=== PATIENT | female | born 1955 | race Caucasian/White ===

== ENCOUNTER 2017-06-25 10:03 | Outpatient (CLI) | payer OTHER ==
--- NOTE | 2017-06-28 16:20 | Mammography Report ---
DIGITAL SCREENING MAMMOGRAM: 06/25/2017 CLINICAL INDICATION: A 61-year-old, for screening. COMPARISON: 08/2014, 05/2013, 07/2011, 07/2009, 07/2008, 07/2007. TECHNIQUE: Routine CC and MLO projections were obtained of the breasts. FINDINGS: The breasts demonstrate fatty replacement bilaterally. Coarse and punctate, typically anuj gn calcifications are present. No suspicious masses, clustered microcalcifications, or regions of arc hitectural distortion are identified. IMPRESSION: BENIGN FINDINGS. RECOMMENDATION: ROUTINE ANNUAL SCREENING UNLESS OTHERWISE CLINICALLY INDICATED. BIRADS CATEGORY 2-BENIGN FINDINGS. STANDARD QUALIFYING STATEMENTS 1. This examination was reviewed with the aid of Computer-Aided Detection (CAD). 2. A negative or benign imaging report should not delay biopsy if clinically suspicious findings are present. Consider surgical consultation if warranted. More than 5% of cancers are not identified by i maging. 3. Dense breasts may obscure an underlying neoplasm. JOB #: [id number] EXT JOB #:[id number]
== END 2017-06-25 10:04 | disposition home or self-care (01) ==
LOC: DI 10:03
PROVIDERS: ATTEND Physician Assistant
DX: Z12.31 Encounter for screening mammogram for malignant neoplasm of breast (principal)
CPT/HCPCS: 77067

== ENCOUNTER 2017-08-13 09:59 | Outpatient (CLI) | payer OTHER ==
[2017-08-13] MEDS ORDERED: IOPAMIDOL-300 100 ML VIAL ONE (10:10)
[2017-08-13] MEDS ORDERED: IOPAMIDOL-300 50 ML VIAL ONE (10:10)
[2017-08-13 10:23] LABS: CREATININE 0.5 mg/dL (0.4-1.0)
[2017-08-13] MEDS ORDERED: IOPAMIDOL-300 50 ML VIAL PO ONE (10:50)
[2017-08-13] MEDS ORDERED: IOPAMIDOL-300 100 ML VIAL IVP ONE (10:50)
--- NOTE | 2017-08-13 13:20 | CT Report ---
EXAM: CT ABDOMEN AND PELVIS EXAM DATE: 08/13/2017 11:28 AM. CLINICAL HISTORY: Elevated liver function test. COMPARISONS: None. TECHNIQUE: Routine helical CT imaging was performed through the abdomen and pelvis. IV contrast: 100 cc Isovue-300. Enteric contrast: Yes. Reconstructions: Coronal and sagittal. In accordance with CT protocol optimization, one or more of the following dose reduction techniques w ere utilized for this exam: automated exposure control, adjustment of mA and/or KV based on patient s ize, or use of iterative reconstructive technique. FINDINGS: Lung Bases: Essentially clear. Liver: Normal size and contour. Mildly diffusely hypodense, consistent with steatosis. No focal lesio n. Orally patent vasculature. Gallbladder/Bile Ducts: No ductal dilatation postcholecystectomy. Spleen: No splenomegaly or focal lesion. Pancreas: A tiny hypodensity (3-4 mm) in the pancreatic head is likely cystic. Otherwise unremarkable . No ductal dilatation. Adrenal Glands: No nodule. Kidneys: No hydronephrosis or stones. Tiny mid pole right renal cyst. Otherwise unremarkable. Peritoneal Cavity/Bowel: No intestinal dilatation. An ascending vermiform retrocecal appendix measure s up to 10 mm in diameter and is associated with mild periappendiceal fat stranding and mild thickeni ng of the adjacent peritoneal lining. No free fluid, abscess, or free air. Few small right lower quad rant lymph nodes measure up to 0.6 cm short axis. No leighann adenopathy by size criteria. Retroperitoneum: No mass or lymphadenopathy. Pelvic Organs: The bladder and visualized pelvic organs are within normal limits. Vasculature: Calcified plaques of proximal common iliac arteries. No abdominal aortic aneurysm. Bones: No significant abnormality. IMPRESSION: 1. Consistent with mild hepatic steatosis. No focal liver lesion. 2. No biliary ductal dilatation postcholecystectomy. 3. Mildly dilated ascending vermiform retrocecal appendix with periappendiceal fat stranding concerni ng for acute appendicitis. No abscess. Close clinical correlation warranted. [facility] The call report notification system was initiated by Dr. Delroy Marcus at 12:38 hrs on 08/13/17. The above findings were discussed with Nurse Saini by Dr. Delroy Marcus at 13:15 hrs on 08/13/17. Referring Provider Line: [phone] SITE ID: [id number]
== END 2017-08-13 10:00 | disposition home or self-care (01) ==
LOC: LAB 09:59
PROVIDERS: ATTEND Physician Assistant
DX: R93.3 Abnormal findings on diagnostic imaging of other parts of digestive tract (principal)
CPT/HCPCS: 36415; 74177; 82565; Q9967

== ENCOUNTER 2017-08-19 11:48 | Outpatient (CLI) | payer OTHER ==
[2017-08-19 12:16] LABS: BASOPHILS % (AUTO) 0.7 %; EOSINOPHILS # (AUTO) 0.2 10^3/uL (0.0-0.7); HCT - HEMATOCRIT 38.3 % (37.0-47.0); HGB - HEMOGLOBIN 13.4 g/dL (12.0-16.0); LYMPHOCYTES # (AUTO) 1.5 10^3/uL (1.5-3.5); LYMPHOCYTES % (AUTO) 23.9 %; MEAN CORPUSCULAR HGB CONC 34.9 g/dL (32.0-36.0); MEAN CORPUSCULAR VOLUME 91.6 fL (81.0-99.0); MEAN PLATELET VOLUME 8.4 fL (7.9-10.8); MONOCYTES # (AUTO) 0.5 10^3/uL (0.0-1.0); MONOCYTES % (AUTO) 8.1 %; NEUTROPHILS # (AUTO) 4.1 10^3/uL (1.5-6.6); NEUTROPHILS % (AUTO) 64.3 %; NUCLEATED RED BLOOD CELLS AUTO 0.2 /100WBC; RED BLOOD COUNT 4.18 10^6/uL (4.20-5.40); RED CELL DISTRIBUTION WIDTH 12.1 % (12.0-15.0); UNCORRECTED WHITE BLOOD COUNT 6.3 x10^3/uL; WHITE BLOOD COUNT 6.3 x10^3/uL (4.8-10.8)
== END 2017-08-19 11:49 | disposition home or self-care (01) ==
LOC: LAB 11:48
PROVIDERS: ATTEND Surgery
DX: K38.9 Disease of appendix, unspecified (principal)
CPT/HCPCS: 36415; 85025

== ENCOUNTER 2017-09-13 07:51 | Outpatient (CLI) | payer OTHER ==
[2017-09-13] MEDS ORDERED: IOPAMIDOL-300 100 ML VIAL ONE (08:03)
[2017-09-13] MEDS ORDERED: IOPAMIDOL-300 50 ML VIAL ONE (08:03)
[2017-09-13] MEDS ORDERED: IOPAMIDOL-300 50 ML VIAL PO ONE (09:12)
[2017-09-13] MEDS ORDERED: IOPAMIDOL-300 100 ML VIAL IVP ONE (09:12)
--- NOTE | 2017-09-13 13:51 | CT Report ---
DATE OF SERVICE: 09/13/2017 CT ABDOMEN AND PELVIS WITH CONTRAST: 09/13/2017 CLINICAL INDICATION: A 62-year-old with history of abnormal appearance of the appendix, followup. COMPARISON: 08/13/2017. TECHNIQUE: Axial CT images of the abdomen and pelvis were obtained with 100 mL Isovue 300 intravenously as well as oral contrast. FINDINGS: Limited evaluation of the lung bases demonstrates minimal atelectasis. ABDOMEN: The liver, spleen, pancreas, kidneys and adrenal glands appear unremarkable. The patient is status post cholecystectomy. No bowel dilatation, free gas, or free fluid is seen. The retrocecal appendix is again identified, and is stable in caliber, with persistent mild periappendiceal fat stranding and small lymph nodes. No bowel dilatation, free gas, or free fluid is present. PELVIS: The pelvic organs appear unremarkable. No pelvic adenopathy or free fluid is present. Osseous structures demonstrate degenerative changes. IMPRESSION: STABLE APPEARANCE OF THE APPENDIX, WITH CALIBER AT THE UPPER LIMITS OF NORMAL AND MILD PERIAPPENDICEAL FAT STRANDING. STABLE SMALL LYMPH NODES. NO SIGNIFICANT INTERVAL CHANGE FROM 08/13/2017. NO EVIDENCE OF PERFORATION OR ABSCESS FORMATION. In accordance with CT protocol optimization, one or more of the following dose reduction techniques were utilized for this exam: automated exposure control, adjustment of mA and/or KV based on patient size, or use of iterative reconstructive technique. TD: 09/13/2017 14:50
== END 2017-09-13 07:52 | disposition home or self-care (01) ==
LOC: DI 07:51
PROVIDERS: ATTEND Surgery
DX: R93.5 Abnormal findings on diagnostic imaging of other abdominal regions, including retroperitoneum (principal); R19.8 Other specified symptoms and signs involving the digestive system and abdomen
CPT/HCPCS: 74177; Q9967

== ENCOUNTER 2017-10-25 07:14 | Day surgery (SDC) | payer OTHER ==
[2017-10-25] MEDS ORDERED: LACTATED RINGERS 1,000 ML IV ONE ×2 (07:30→08:44)
[2017-10-25] MEDS ORDERED: fentaNYL 100 MCG/2 ML VIAL IVP ONE (08:22)
[2017-10-25] MEDS ORDERED: MIDAZOLAM 2 MG/2 ML VIAL IVP ONE (08:22)
[2017-10-25 09:57] VITALS: BP 130/65
== END 2017-10-25 07:15 | disposition home or self-care (01) ==
LOC: SDS 07:14
PROVIDERS: ATTEND Surgery
PROC: 0DBH8ZX Excision of Cecum, Via Natural or Artificial Opening Endoscopic, Diagnostic (ICD-10-PCS; principal; 2017-10-25 08:15)
DX: R93.5 Abnormal findings on diagnostic imaging of other abdominal regions, including retroperitoneum (principal); K63.89 Other specified diseases of intestine; K64.8 Other hemorrhoids; E11.9 Type 2 diabetes mellitus without complications; I10 Essential (primary) hypertension; E78.5 Hyperlipidemia, unspecified
CPT/HCPCS: 45380; J7120

== ENCOUNTER 2018-09-08 09:13 | Outpatient (CLI) | payer OTHER ==
--- NOTE | 2018-09-09 11:10 | XRAY Report ---
Reason: PAIN IN RT WRIST Procedure Date: 09/08/2018 Accession Number: [id number] / [id number] Procedure: XR - Hand 2 View RT CPT Code: FULL RESULT: EXAMS: RIGHT HAND AND WRIST RADIOGRAPHY EXAM DATE: 09/08/2018 04:32 PM. CLINICAL HISTORY: Pain in right wrist. COMPARISON: WRIST 2 VIEW RT 09/08/2018 4:24 PM. TECHNIQUE: 2 views each of hand and wrist. FINDINGS: Bones: Normal. No fractures or bone lesions in the hand or wrist. Joints: Normal. No subluxations in the hand or wrist. Soft Tissues: Normal. No soft tissue swelling. IMPRESSION: Normal hand and wrist radiography. [facility]
--- NOTE | 2018-09-09 11:10 | XRAY Report ---
Reason: PAIN IN RT WRIST Procedure Date: 09/08/2018 Accession Number: [id number] / [id number] Procedure: XR - Wrist 2 View RT CPT Code: FULL RESULT: EXAMS: RIGHT HAND AND WRIST RADIOGRAPHY EXAM DATE: 09/08/2018 04:32 PM. CLINICAL HISTORY: Pain in right wrist. COMPARISON: WRIST 2 VIEW RT 09/08/2018 4:24 PM. TECHNIQUE: 2 views each of hand and wrist. FINDINGS: Bones: Normal. No fractures or bone lesions in the hand or wrist. Joints: Normal. No subluxations in the hand or wrist. Soft Tissues: Normal. No soft tissue swelling. IMPRESSION: Normal hand and wrist radiography. [facility]
== END 2018-09-08 09:14 | disposition home or self-care (01) ==
LOC: DI 09:13
PROVIDERS: ATTEND Nurse Practitioner Family
DX: M25.531 Pain in right wrist (principal)

== ENCOUNTER 2019-09-11 16:25 | Outpatient (CLI) | payer BC ==
--- NOTE | 2019-09-11 17:18 | CT Report ---
Reason: ACUTE SINUSITIS Procedure Date: 09/11/2019 Accession Number: [id number] / [id number] Procedure: CT - Sinuses CPT Code: Final Report FULL RESULT: EXAM: CT SINUS EXAM DATE: 09/11/2019 04:39 PM. HISTORY: Acute sinusitis. History of sinus surgery on the right. Chronic sinusitis. Acute symptoms 1 month. COMPARISONS: CT sinus 06/03/2015. TECHNIQUE: Bone algorithm multiaxial CT imaging performed through the sinuses. Iodinated IV contrast: None. Reconstructions: Multiplanar reformats. In accordance with CT protocol optimization, one or more of the following dose reduction techniques were utilized for this exam: automated exposure control, adjustment of mA and/or KV based on patient size, or use of iterative reconstructive technique. FINDINGS: There is a mild bilateral ethmoid air cell mucosal thickening greater on the right relative to the left. This has increased. There is moderate bilateral sinus mucosal thickening. This is new on the left. On the comparison study, the right maxillary sinus was completely opacified. Mild to moderate right sphenoid sinus mucosal thickening is seen. This is new. A tiny retention cyst/polyp is seen in the left sphenoid sinus. This is stable. Trace inferior frontal sinus mucosal thickening bilaterally is new. A small retention cyst/polyp is seen in the inferior right frontal sinus. This is stable. Mastoid air cells and middle ear cavity are well aerated. The nasal septum is minimally bowed to the left. The nasal cavity is patent. The right and left osteotomy unit are obstructed. Wispy soft tissue is seen in each maxillary sinus. No mass is present in the nasopharynx. IMPRESSION: 1. Pansinus mucosal thickening is discussed above. 2. The ostiomeatal unit is obstructed bilaterally. [facility]
== END 2019-09-11 16:26 | disposition home or self-care (01) ==
LOC: DI 16:25
PROVIDERS: ATTEND Nurse Practitioner Family
DX: J01.40 Acute pansinusitis, unspecified (principal)
CPT/HCPCS: 70486

== ENCOUNTER 2019-10-17 08:22 | Outpatient (CLI) | payer BC | END 2019-10-17 08:23 | disposition home or self-care (01) | LOC: RT 08:22 | PROVIDERS: ATTEND Physician Assistant | DX: R07.9 Chest pain, unspecified (principal) | CPT/HCPCS: 93005 ==

== ENCOUNTER 2019-10-20 15:11 | Outpatient (CLI) | payer BC ==
--- NOTE | 2019-10-31 13:15 | Mammography Report ---
Reason: ROUTINE MAMMO Procedure Date: 10/20/2019 Accession Number: [id number] / [id number] Procedure: [facility] - Screening Mammo w/Dread CPT Code: Final Report FULL RESULT: EXAM: Screening Mammo w/Dread DATE: 10/20/2019 3:33 PM CLINICAL HISTORY: Screening encounter. TECHNIQUE: (B) - Bilateral CC and MLO views were obtained. COMPARISON: 06/25/2017 through 08/18/2011. PARENCHYMAL PATTERN: (A) - The breast(s) demonstrate(s) scattered fibroglandular densities. FINDINGS: There are no suspicious masses, calcifications, or areas of distortion. IMPRESSION: Negative examination. BI-RADS category 1. RECOMMENDATION: (ANNUAL) - Recommend routine annual screening mammography. BI-RADS CATEGORY: (1) - Negative. STANDARD QUALIFYING STATEMENTS: 1. This examination was not reviewed with the aid of Computer-Aided Detection (CAD). 2. A negative or benign imaging report should not preclude biopsy if clinically suspicious findings are present. 3. Dense breasts may obscure an underlying neoplasm. 4. This examination was reviewed with the aid of 3D breast imaging (tomosynthesis).
== END 2019-10-20 15:12 | disposition home or self-care (01) ==
LOC: DI 15:11
PROVIDERS: ATTEND Physician Assistant
DX: Z12.31 Encounter for screening mammogram for malignant neoplasm of breast (principal)
CPT/HCPCS: 77063; 77067